=== PATIENT | male | born 1950 | race Caucasian/White ===

== ENCOUNTER 2018-08-18 05:37 | Inpatient (IN) | payer MEDICARE ==
[2018-08-11 11:23] LABS: Basophils # (Auto) 0.1 K/mm3 (0.0-0.1); Basophils % (Auto) 1.1 % (0.0-1.8); Eosinophils # (Auto) 0.1 K/mm3 (0.0-0.4); Eosinophils % (Auto) 2.7 % (0.0-4.3); Hematocrit 46.1 % (35.5-45.6); Hemoglobin 15.5 gm/dl (11.8-15.2); Lymphocytes # (Auto) 2.1 K/mm3 (1.2-5.4); Lymphocytes % (Auto) 39.2 % (13.4-35.0); Mean Corpuscular HGB Conc 34 % (32-34); Mean Corpuscular Volume 89 fl (84-94); Monocytes # (Auto) 0.3 K/mm3 (0.0-0.8); Monocytes % (Auto) 6.1 % (0.0-7.3); Platelet Count 182 K/mm3 (140-440); Red Blood Count 5.21 M/mm3 (3.65-5.03); Red Cell Distribution Width 13.9 % (13.2-15.2)
[2018-08-11 11:31] LABS: INR 0.9 (0.87-1.13)
--- NOTE | 2018-08-11 11:47 | Anesthesia Consultation ---
Addendum entered and electronically signed by JAY MARINO MD 08/18/18 07:54: Physical Exam unchanged Original Note: Anesthesia Consult and Med Hx Date of service: 08/11/18 - Airway Anesthetic Teeth Evaluation: Dentures (upper) ROM Head & Neck: Adequate Mental/Hyoid Distance: Adequate Mallampati Class: Class III Intubation Access Assessment: Possibly Difficult - Pulmonary Exam CTA: Yes - Cardiac Exam Cardiac Exam: RRR - Pre-Operative Health Status ASA Pre-Surgery Classification: ASA2 Proposed Anesthetic Plan: General - Pulmonary Hx Smoking: No Hx Asthma: No Hx Respiratory Symptoms: Yes (recent URI (?flu) 2 weeks ago treated with OTC meds. Resolved.) SOB: No - Cardiovascular System Hx Hypertension: Yes Hx Heart Attack/AMI: No Hx Percutaneous Transluminal Coronary Angioplasty (PTCA): No - Central Nervous System Hx Seizures: No CVA: No - Gastrointestinal Hx Gastroesophageal Reflux Disease: No - Endocrine Hx Renal Disease: No Hx Liver Disease: No Hx Insulin Dependent Diabetes: No Hx Non-Insulin Dependent Diabetes: No Hx Thyroid Disease: No - Other Systems Hx Obesity: No - Additional Comments Anesthesia Medical History Comments: No hx anesthetic complications.
[2018-08-11 11:58] LABS: Alanine Aminotransferase 22 units/L (7-56); Albumin 4.3 g/dL (3.9-5); BUN/Creatinine Ratio 19; Blood Urea Nitrogen 17 mg/dL (9-20); Calcium 9.4 mg/dL (8.4-10.2); Hemolysis Index 18
[~2018-08-18 05:37] MED LIST: LACTATED RINGERS 1,000 ML IV SCH; NACL 0.9% 500 ML 500 ML IV ONE; NEURONTIN PO NR; VERSED IV NR
[2018-08-18] MEDS ORDERED: NACL 0.9% 1000 ML 1,000 ML IV SCH ×2 (06:16→16:00)
[2018-08-18] MEDS ORDERED: NACL BACTERIOSTATIC INFILTRATI ONE (06:30)
[2018-08-18] MEDS ORDERED: VERSED IV PRN (06:52)
[2018-08-18] MEDS ORDERED: DIPRIVAN 10 MG/ML IV ONE (07:21)
[2018-08-18] MEDS ORDERED: XYLOCAINE MPF 2% ONE (07:21)
[2018-08-18] MEDS ORDERED: DILAUDID ONE ×2 (07:21→10:40)
[2018-08-18] MEDS ORDERED: ZEMURON IV ONE ×2 (07:21→09:56)
[2018-08-18] MEDS ORDERED: NEOSPORIN GU IR ONE ×2 (07:23→10:00)
[2018-08-18] MEDS ORDERED: ACD-A 500 ML IV ONE (07:23)
[2018-08-18] MEDS ORDERED: ANCEF/STERILE WATER 2 GM/20 ML IV NR (07:36)
[2018-08-18] MEDS ORDERED: DILAUDID IV PRN (07:55)
[2018-08-18] MEDS ORDERED: ZOFRAN IV PRN ×3 (07:55→15:22)
--- NOTE | 2018-08-18 07:55 | Anesthesia Day of Surgery ---
Anesthesia Day of Surgery - Day of Surgery Patient Examined: Yes Patient H&P Reviewed: Yes Patient is NPO: Yes
[2018-08-18] MEDS ORDERED: LACTATED RINGERS 1,000 ML IV SCH (08:00)
[2018-08-18] MEDS ORDERED: DECADRON ONE (08:38)
[2018-08-18] MEDS ORDERED: ZOFRAN ONE (08:38)
[2018-08-18] MEDS ORDERED: METHYLENE BLUE ONE (09:28)
[2018-08-18] MEDS ORDERED: SUBLIMAZE ONE (09:29)
[2018-08-18] MEDS ORDERED: NACL 0.9% IR ONE (10:00)
[2018-08-18] MEDS ORDERED: WATER FOR IRRIG STERILE IR ONE (10:00)
[2018-08-18] MEDS ORDERED: BLOXIVERZ ONE (10:09)
[2018-08-18] MEDS ORDERED: ROBINUL ONE (10:09)
[2018-08-18] MEDS ORDERED: WATER FOR IRRIG STERILE ONE ×2 (11:06→11:32)
--- NOTE | 2018-08-18 11:17 | Post Anesthesia Evaluation ---
- Post Anesthesia Evaluation Patient Participated: Yes Airway Patent: Yes Stable Respiratory Function: Yes Nausea/Vomiting: No Temp > 96.8F: Yes Pain Manageable: Yes Adequeate Hydration: Yes Anesthesia Complications: No
[2018-08-18] MEDS ORDERED: NACL 0.9% 2,000 ML ONE ×4 (11:20→11:32)
[2018-08-18] MEDS: DILAUDID IV PRN ×5 (11:25→23:03)
[2018-08-18] MEDS ORDERED: LOPRESSOR IV ONE (11:26)
[2018-08-18 11:34] LABS: Basophils % (Auto) 0.1 % (0.0-1.8); Eosinophils % (Auto) 0.3 % (0.0-4.3); Hematocrit 42.6 % (35.5-45.6); Lymphocytes # (Auto) 1.3 K/mm3 (1.2-5.4); Lymphocytes % (Auto) 10.6 % (13.4-35.0); Mean Corpuscular HGB Conc 33 % (32-34); Mean Corpuscular Volume 90 fl (84-94); Monocytes # (Auto) 0.1 K/mm3 (0.0-0.8); Monocytes % (Auto) 1.1 % (0.0-7.3); Platelet Count 139 K/mm3 (140-440); Red Blood Count 4.76 M/mm3 (3.65-5.03); Red Cell Distribution Width 14.1 % (13.2-15.2)
[2018-08-18] MEDS ORDERED: NACL 0.9% 4,000 ML ONE ×5 (11:36→14:26)
[2018-08-18 11:50] LABS: BUN/Creatinine Ratio 20; Blood Urea Nitrogen 16 mg/dL (9-20); Hemolysis Index 22
[2018-08-18] MEDS ORDERED: NACL 0.9% 1000 ML 1,000 ML ONE (11:50)
--- NOTE | 2018-08-18 12:06 | Post Operative Note ---
Date of procedure: 08/18/18 Pre-op diagnosis: urinary retention Post-op diagnosis: same Findings: as above Procedure: open prostatectomy Anesthesia: GETA Surgeon: SONNY CARMONA Estimated blood loss: other (300) Pathology: list (prostate) Specimen disposition: to lab Condition: stable Disposition: PACU
[2018-08-18 13:27] LABS: Hematocrit 39.1 % (35.5-45.6); Hemoglobin 12.7 gm/dl (11.8-15.2)
[2018-08-18] MEDS ORDERED: ZOFRAN ODT PO PRN (14:30)
[2018-08-18] MEDS ORDERED: TYLENOL PO PRN ×2 (14:30→15:22)
[2018-08-18] MEDS ORDERED: NARCAN 0.4 MG/1 ML IV PRN (14:30)
--- NOTE | 2018-08-18 14:34 | Operative Report ---
PREOPERATIVE DIAGNOSES: Very large prostate with significant intravesical extension, urinary retention, severe bladder outlet obstruction. POSTOPERATIVE DIAGNOSES: Very large prostate with significant intravesical extension, urinary retention, severe bladder outlet obstruction. PROCEDURE: Open prostatectomy. SURGEON Xavi Giron MD METAL MOLD DRESSER: Dr. Parham. ANESTHESIA: General. FINDINGS: This is a gentleman with severe difficulty voiding. He did not improve with conservative measures and medication. He has a large intravesical component and he now presents for treatment. DESCRIPTION OF PROCEDURE: The patient was brought to the operating room and placed on the operating table. Following induction of anesthesia, he was placed in the supine position over the break of the table and prepped and draped in usual sterile fashion. A Pfannenstiel incision was made and carried through the skin and superficial fascia to the rectus sheath. The rectus sheath was cleaned and opened and dissected underneath. The rectus muscle was then divided. Bladder was filled and the peritoneal reflection was pushed superiorly. At this point, stay sutures were placed in the bladder. The bladder was opened and the saline was evacuated. The Duron catheter was removed and we had excellent visualization of the prostate with the O'Yon-O'Yao retractor. Excellent plane was developed on each side and the prostate was easily enucleated without any difficulty. Hemostatic foam as well as a packing was placed for approximately 8 minutes and held. Hemostasis was pretty good, but we still placed sutures at 5 and 7 o'clock positions and any bleeder was sutured. Duron catheter #24 was placed with approximately 15 mL in the balloon and the rest of the solution in the balloon was placed after we started closing the bladder. A 28 suprapubic placed as well as a 10-Nepali flat SERGEI. The patient tolerated the procedure well. The bladder was then closed in 2 layers. Hemostasis with the Crandall drip was good. Irrigation was minimally pink. We brought out the suprapubic tube and drain through a separate stab wound. The fascia was closed with looped PDS, superficial fascia with a 2-0 Vicryl, and skin with clips. The patient tolerated the procedure well. Estimated blood loss during the case was 300. He was brought to recovery in stable condition. When we got to the recovery room, urine was little bloody. He was having some spasms so I put him on a little traction which seems to clear. Hemoglobin recovery is 14, we will keep a close eye. If he needs blood, we will give it to him and he seems to be stable. His blood pressure was up to 180 in the recovery room. We gave him pain medication that also helped. JOB# [id number] JILLIAN/DEEPAK
[2018-08-18] MEDS ORDERED: SODIUM CHLORIDE FLUSH SYRINGE 10 ML IV PRN (15:22)
[2018-08-18] MEDS ORDERED: D5W/0.45% NACL/KCL 20 MEQ 20 MEQ/1,000 ML BAG IV SCH (16:00)
[2018-08-18] MEDS: ANCEF/NS 1 GM/50 ML 1 GM/50 ML BAG IV SCH (16:35)
[2018-08-18] MEDS ORDERED: SODIUM CHLORIDE FLUSH SYRINGE 10 ML IV SCH (22:00)
[2018-08-18] MEDS: COLACE PO SCH (22:49)
[2018-08-18] MEDS: AMBIEN PO PRN (23:05)
--- NOTE | 2018-08-19 01:28 | History and Physical Report ---
History of Present Illness Date of examination: 08/18/18 Date of admission: 08/18/18 14:30 Chief complaint: S/p Prostatectomy History of present illness: S/p open prostatectomy for large BPH.Post op doing well.No sob or fever. Past History Past Medical History: hypertension, hyperlipidemia, other (Bph) Past Surgical History: Other (Prostatectomy) Social history: no significant social history, lives with family, full code Family history: hypertension Medications and Allergies Allergies Allergy/AdvReac Type Severity Reaction Status Date / Time No Known Allergies Allergy Verified 08/06/18 14:17 Home Medications Medication Instructions Recorded Confirmed Last Taken Type Tamsulosin [Flomax] 0.4 mg PO QDAY #14 cap 02/15/15 08/06/18 08/17/18 Rx Finasteride [Proscar] 5 mg PO DAILY 08/06/18 08/06/18 08/17/18 History AtorvaSTATin [Lipitor] 20 mg PO QHS 08/13/18 08/13/18 08/17/18 History Lisinopril/Hydrochlorothiazide 1 each PO DAILY 08/13/18 08/13/18 08/17/18 History [Zestoretic 10-12.5 mg Tablet] Active Meds: Active Medications Acetaminophen (Tylenol) 650 mg PO Q4H PRN PRN Reason: Pain, Mild (1-3)/Fever > 100.5 Atorvastatin Calcium (Lipitor) 20 mg PO QHS [facility] Docusate Sodium (Colace) 100 mg PO BID [facility] Last Admin: 08/18/18 22:49 Dose: 100 mg Documented by: Hydromorphone HCl (Dilaudid) 0.5 mg IV Q3H PRN PRN Reason: Pain , Severe (7-10) Last Admin: 08/18/18 23:03 Dose: 0.5 mg Documented by: Lactated Ringer's (Lactated Ringers) 1,000 mls @ 100 mls/hr IV DIRECT HUMBERTO Cefazolin Sodium (Ancef/Ns 1 Gm/50 Ml) 1 gm in 50 mls @ 100 mls/hr IV Q8H [facility]; Protocol Stop: 08/19/18 16:29 Last Admin: 08/18/18 16:35 Dose: 100 mls/hr Documented by: Potassium Chloride/Dextrose/Sod Cl (D5w/0.45% Nacl/Kcl 20 Meq) 20 meq in 1,000 mls @ 125 mls/hr IV DIRECT HUMBERTO Sodium Chloride (Nacl 0.9% 1000 Ml) 1,000 mls @ 75 mls/hr IV DIRECT [facility]UM[facility]ERTO Miscellaneous Medication (Lisinopril/Hydrochlorothiazide [Zestoretic 10-12.5 Mg Tablet]) 1 each PO DAILY [facility] Naloxone HCl (Narcan 0.4 Mg/1 Ml) 0.1 mg IV Q2MIN PRN PRN Reason: Res Rate </= 8 or 02 SAT < 92% Ondansetron HCl (Zofran) 4 mg IV ONCE PRN PRN Reason: Nausea And Vomiting Ondansetron HCl (Zofran Odt) 4 mg PO Q8H PRN PRN Reason: Nausea And Vomiting Ondansetron HCl (Zofran) 4 mg IV Q8H PRN PRN Reason: Nausea And Vomiting Sodium Chloride (Nacl 0.9%) 2,000 ml IR DIRECT [facility]UM[facility]ERTO Sodium Chloride (Sodium Chloride Flush Syringe 10 Ml) 10 ml IV BID [facility] Last Admin: 08/18/18 22:49 Dose: 10 ml Documented by: Sodium Chloride (Sodium Chloride Flush Syringe 10 Ml) 10 ml IV PRN PRN PRN Reason: LINE FLUSH Zolpidem Tartrate (Ambien) 5 mg PO QHS PRN PRN Reason: Sleep Last Admin: 08/18/18 23:05 Dose: 5 mg Documented by: Review of Systems All systems: negative Exam - Constitutional Vitals: Temp Pulse Resp BP Pulse Ox 98.1 F 101 H 16 152/90 97 08/18/18 17:30 08/18/18 17:30 08/18/18 17:30 08/18/18 17:30 08/18/18 17:00 General appearance: Present: no acute distress, well-nourished - EENT Eyes: Present: PERRL ENT: hearing intact, clear oral mucosa - Neck Neck: Present: supple, normal ROM - Respiratory Respiratory effort: normal Respiratory: bilateral: CTA - Cardiovascular Heart rate: 78 Rhythm: regular Heart Sounds: Present: S1 & S2. Absent: rub, click - Extremities Extremities: pulses symmetrical, No edema Peripheral Pulses: within normal limits - Abdominal General gastrointestinal: Present: soft, non-tender, non-distended, normal bowel sounds Male genitourinary: Present: normal - Rectal Rectal Exam: deferred - Integumentary Integumentary: Present: clear, warm, dry - Musculoskeletal Musculoskeletal: gait normal, strength equal bilaterally - Psychiatric Psychiatric: appropriate mood/affect, intact judgment & insight - Neurologic Neurologic: CNII-XII intact, moves all extremities - Allied Health Allied health notes reviewed: nursing, case management Results - Labs CBC & Chem 7: 08/18/18 13:21 08/18/18 11:31 Labs: Laboratory Last Values WBC 12.3 K/mm3 (4.5-11.0) H 08/18/18 11:31 RBC 4.76 M/mm3 (3.65-5.03) 08/18/18 11:31 Hgb 12.7 gm/dl (11.8-15.2) 08/18/18 13:21 Hct 39.1 % (35.5-45.6) 08/18/18 13:21 MCV 90 fl (84-94) 08/18/18 11:31 MCH 30 pg (28-32) 08/18/18 11:31 MCHC 33 % (32-34) 08/18/18 11:31 RDW 14.1 % (13.2-15.2) 08/18/18 11:31 Plt Count 139 K/mm3 (140-440) L 08/18/18 11:31 Lymph % (Auto) 10.6 % (13.4-35.0) L 08/18/18 11:31 [place] % (Auto) 1.1 % (0.0-7.3) 08/18/18 11:31 Eos % (Auto) 0.3 % (0.0-4.3) 08/18/18 11:31 Baso % (Auto) 0.1 % (0.0-1.8) 08/18/18 11:31 Lymph # 1.3 K/mm3 (1.2-5.4) 08/18/18 11:31 [place] # 0.1 K/mm3 (0.0-0.8) 08/18/18 11:31 Eos # 0.0 K/mm3 (0.0-0.4) 08/18/18 11:31 Baso # 0.0 K/mm3 (0.0-0.1) 08/18/18 11:31 Seg Neutrophils % 87.9 % (40.0-70.0) H 08/18/18 11:31 Seg Neutrophils # 10.9 K/mm3 (1.8-7.7) H 08/18/18 11:31 PT 12.6 Sec. (12.2-14.9) 08/11/18 11:00 INR 0.90 (0.87-1.13) 08/11/18 11:00 APTT 26.5 Sec. (24.2-36.6) 08/11/18 11:00 Sodium 138 mmol/L (137-145) 08/18/18 11:31 Potassium 4.0 mmol/L (3.6-5.0) 08/18/18 11:31 Chloride 109.5 mmol/L (98-107) H 08/18/18 11:31 Carbon Dioxide 20 mmol/L (22-30) L 08/18/18 11:31 Anion Gap 13 mmol/L 08/18/18 11:31 BUN 16 mg/dL (9-20) 08/18/18 11:31 Creatinine 0.8 mg/dL (0.8-1.5) 08/18/18 11:31 Estimated GFR > 60 ml/min 08/18/18 11:31 BUN/Creatinine Ratio 20 % 08/18/18 11:31 Glucose 136 mg/dL (75-100) H 08/18/18 11:31 Calcium 8.0 mg/dL (8.4-10.2) L 08/18/18 11:31 Total Bilirubin 0.40 mg/dL (0.1-1.2) 08/11/18 11:00 AST 20 units/L (5-40) 08/11/18 11:00 ALT 22 units/L (7-56) 08/11/18 11:00 Alkaline Phosphatase 63 units/L (35-129) 08/11/18 11:00 Total Protein 7.7 g/dL (6.3-8.2) 08/11/18 11:00 Albumin 4.3 g/dL (3.9-5) 08/11/18 11:00 Albumin/Globulin Ratio 1.3 % 08/11/18 11:00 Blood Type O POSITIVE 08/18/18 06:30 Antibody Screen Negative 08/18/18 06:30 Crossmatch See Detail 08/18/18 06:30 Assessment and Plan Advance Directives: Yes (FC) VTE prophylaxis?: Chemical Plan of care discussed with patient/family: Yes - Patient Problems (1) S/P prostatectomy Current Visit: Yes Status: Acute Plan to address problem: Doing well (2) BPH (benign prostatic hyperplasia) Current Visit: Yes Status: Chronic Qualifiers: Lower urinary tract symptom presence: symptoms present Lower urinary tract symptom detail: urinary retention Qualified Code(s): N40.1 - Benign prostatic hyperplasia with lower urinary tract symptoms; R33.8 - Other retention of urine Plan to address problem: Patient had Prostatectomy May not need Flomax and Proscar Will defer to Urology (3) HTN (hypertension) Current Visit: Yes Status: Chronic Qualifiers: Hypertension type: essential hypertension Qualified Code(s): I10 - Essential (primary) hypertension Plan to address problem: Cont Lisinopril (4) HLD (hyperlipidemia) Current Visit: Yes Status: Chronic Qualifiers: Hyperlipidemia type: mixed hyperlipidemia Qualified Code(s): E78.2 - Mixed hyperlipidemia (5) DVT prophylaxis Current Visit: Yes Status: Acute Plan to address problem: Scd's and GI prophylaxis
[2018-08-19] MEDS ORDERED: ZOFRAN IV PRN (01:34)
[2018-08-19] MEDS ORDERED: SODIUM CHLORIDE FLUSH SYRINGE 10 ML IV PRN (01:34)
[2018-08-19] MEDS ORDERED: TYLENOL PO PRN (01:34)
[2018-08-19 05:03] LABS: Basophils % (Auto) 0.3 % (0.0-1.8); Hematocrit 35.4 % (35.5-45.6); Hemoglobin 11.8 gm/dl (11.8-15.2); Lymphocytes # (Auto) 1.3 K/mm3 (1.2-5.4); Lymphocytes % (Auto) 14.3 % (13.4-35.0); Mean Corpuscular HGB Conc 33 % (32-34); Mean Corpuscular Volume 90 fl (84-94); Monocytes # (Auto) 0.7 K/mm3 (0.0-0.8); Monocytes % (Auto) 8.1 % (0.0-7.3); Platelet Count 161 K/mm3 (140-440); Red Blood Count 3.92 M/mm3 (3.65-5.03); Red Cell Distribution Width 14.1 % (13.2-15.2)
[2018-08-19 05:28] LABS: BUN/Creatinine Ratio 13; Blood Urea Nitrogen 16 mg/dL (9-20); Calcium 7.6 mg/dL (8.4-10.2); Hemolysis Index 0
[2018-08-19] MEDS ORDERED: NON-FORMULARY (Lisinopril/Hydrochlorothiazide [Zestoretic 10-12.5 Mg Tablet] 1 EACH) PO SCH (10:00)
--- NOTE | 2018-08-19 10:45 | Progress Note ---
Assessment and Plan urine clear looks wekk dressing changed oob Subjective Date of service: 08/19/18 Principal diagnosis: retention Objective - Constitutional General appearance: Present: no acute distress - Neck Neck: supple - Respiratory Respiratory effort: normal Extremities: no ischemia - Gastrointestinal General gastrointestinal: Present: soft, non-tender - Labs CBC & Chem 7: 08/19/18 04:28 08/19/18 04:28 Labs: Abnormal lab results 08/18/18 08/18/18 08/18/18 Range/Units 06:30 11:31 11:31 WBC 12.3 H (4.5-11.0) K/mm3 Hct (35.5-45.6) % Plt Count 139 L (140-440) K/mm3 Lymph % (Auto) 10.6 L (13.4-35.0) % [place] % (Auto) (0.0-7.3) % Seg Neutrophils % 87.9 H (40.0-70.0) % Seg Neutrophils # 10.9 H (1.8-7.7) K/mm3 Potassium (3.6-5.0) mmol/L Chloride 109.5 H (98-107) mmol/L Carbon Dioxide 20 L (22-30) mmol/L Glucose 136 H (75-100) mg/dL POC Glucose (70-105) Calcium 8.0 L (8.4-10.2) mg/dL Crossmatch See Detail 08/18/18 08/19/18 08/19/18 Range/Units 23:54 04:28 04:28 WBC (4.5-11.0) K/mm3 Hct 35.4 L (35.5-45.6) % Plt Count (140-440) K/mm3 Lymph % (Auto) (13.4-35.0) % [place] % (Auto) 8.1 H (0.0-7.3) % Seg Neutrophils % 77.3 H (40.0-70.0) % Seg Neutrophils # (1.8-7.7) K/mm3 Potassium 5.6 H D (3.6-5.0) mmol/L Chloride (98-107) mmol/L Carbon Dioxide (22-30) mmol/L Glucose 145 H (75-100) mg/dL POC Glucose 145 H (70-105) Calcium 7.6 L (8.4-10.2) mg/dL Crossmatch Medications & Allergies - Medications Allergies/Adverse Reactions: Allergies No Known Allergies Allergy (Verified 08/06/18 14:17) Home Medications: Home Medications Medication Instructions Recorded Confirmed Last Taken Type Tamsulosin [Flomax] 0.4 mg PO QDAY #14 cap 02/15/15 08/06/18 08/17/18 Rx Finasteride [Proscar] 5 mg PO DAILY 08/06/18 08/06/18 08/17/18 History AtorvaSTATin [Lipitor] 20 mg PO QHS 08/13/18 08/13/18 08/17/18 History Lisinopril/Hydrochlorothiazide 1 each PO DAILY 08/13/18 08/13/18 08/17/18 History [Zestoretic 10-12.5 mg Tablet] Active Medications: Generic Name Dose Route Start Last Admin Trade Name Freq PRN Reason Stop Dose Admin Acetaminophen 650 mg 08/19/18 01:34 Tylenol PO Q4H PRN Pain MILD(1-3)/Fever >100.5/SAMSON Atorvastatin Calcium 20 mg 08/19/18 22:00 Lipitor PO QHS [facility] Docusate Sodium 100 mg 08/18/18 22:00 08/18/18 22:49 Colace PO 100 mg BID [facility] Administration Famotidine 20 mg 08/19/18 10:00 Pepcid PO BID [facility] Hydrochlorothiazide 12.5 mg 08/19/18 10:00 Hctz PO QDAY [facility] Hydromorphone HCl 0.5 mg 08/18/18 14:30 08/18/18 23:03 Dilaudid IV 0.5 mg Q3H PRN Administration Pain , Severe (7-10) Cefazolin Sodium 1 gm in 50 mls @ 100 mls/hr 08/18/18 16:00 08/18/18 16:35 Ancef/Ns 1 Gm/50 Ml IV 08/19/18 16:29 100 mls/hr Q8H [facility] Administration Protocol Dextrose/Sodium Chloride 1,000 mls @ 125 mls/hr 08/19/18 10:36 D5/0.45ns IV DIRECT [facility]UM[facility]ERTO Lisinopril 10 mg 08/19/18 10:00 Zestril PO QDAY [facility] Naloxone HCl 0.1 mg 08/18/18 14:30 Narcan 0.4 Mg/1 Ml IV Q2MIN PRN Res Rate </= 8 or 02 SAT < 92% Ondansetron HCl 4 mg 08/18/18 14:30 Zofran Odt PO Q8H PRN Nausea And Vomiting Ondansetron HCl 4 mg 08/19/18 01:34 Zofran IV Q8H PRN Nausea And Vomiting Sodium Chloride 2,000 ml 08/18/18 15:00 Nacl 0.9% IR DIRECT HUM[facility]ERTO Sodium Chloride 10 ml 08/19/18 10:00 Sodium Chloride Flush Syringe 10 Ml IV BID [facility] Sodium Chloride 10 ml 08/19/18 01:34 Sodium Chloride Flush Syringe 10 Ml IV PRN PRN LINE FLUSH Zolpidem Tartrate 5 mg 08/18/18 14:30 08/18/18 23:05 Ambien PO 5 mg QHS PRN Administration Sleep
[2018-08-19] MEDS: D5/0.45NS 1,000 ML IV SCH ×2 (11:24→21:25)
[2018-08-19] MEDS: ANCEF/NS 1 GM/50 ML 1 GM/50 ML BAG IV SCH ×4 (11:27→23:58)
[2018-08-19] MEDS: PEPCID PO SCH ×2 (11:28→21:25)
[2018-08-19] MEDS: HCTZ PO SCH (11:28)
[2018-08-19] MEDS: COLACE PO SCH ×2 (11:28→21:25)
[2018-08-19] MEDS: ZESTRIL PO SCH (11:28)
[2018-08-19] MEDS: SODIUM CHLORIDE FLUSH SYRINGE 10 ML IV SCH ×2 (11:29→21:25)
[2018-08-19] MEDS: DILAUDID IV PRN ×3 (12:12→21:26)
--- NOTE | 2018-08-19 14:07 | Progress Note ---
Assessment and Plan Assessment and plan: s/p prostatectomy. Continue per urology. Hypertension. Continue lisinopril. Hyperkalemia. Kayexalate 1. Hyperlipidemia. Deconditioning. PT/OT DVT prophylaxis. SCDs History Interval history: S/p open prostatectomy for large BPH.Post op doing well. Hospitalist Physical - Constitutional Vitals: Temp Pulse Resp BP Pulse Ox 98.1 F 86 16 120/69 97 08/18/18 17:30 08/19/18 11:28 08/18/18 17:30 08/19/18 11:28 08/18/18 17:00 General appearance: Present: no acute distress - EENT Eyes: Present: PERRL, EOM intact ENT: hearing intact, clear oral mucosa, dentition normal - Neck Neck: Present: supple, normal ROM - Respiratory Respiratory effort: normal Respiratory: bilateral: CTA - Cardiovascular Rhythm: regular Heart Sounds: Present: S1 & S2. Absent: gallop, rub - Extremities Extremities: no ischemia, No edema, Full ROM - Abdominal General gastrointestinal: soft, non-tender, non-distended, normal bowel sounds - Integumentary Integumentary: Present: clear, warm, dry - Neurologic Neurologic: CNII-XII intact, moves all extremities Results - Labs CBC & Chem 7: 08/19/18 04:28 08/19/18 04:28 Labs: Laboratory Last Values WBC 9.0 K/mm3 (4.5-11.0) 08/19/18 04:28 RBC 3.92 M/mm3 (3.65-5.03) 08/19/18 04:28 Hgb 11.8 gm/dl (11.8-15.2) 08/19/18 04:28 Hct 35.4 % (35.5-45.6) L 08/19/18 04:28 MCV 90 fl (84-94) 08/19/18 04:28 MCH 30 pg (28-32) 08/19/18 04:28 MCHC 33 % (32-34) 08/19/18 04:28 RDW 14.1 % (13.2-15.2) 08/19/18 04:28 Plt Count 161 K/mm3 (140-440) 08/19/18 04:28 Lymph % (Auto) 14.3 % (13.4-35.0) 08/19/18 04:28 [place] % (Auto) 8.1 % (0.0-7.3) H 08/19/18 04:28 Eos % (Auto) 0.0 % (0.0-4.3) 08/19/18 04:28 Baso % (Auto) 0.3 % (0.0-1.8) 08/19/18 04:28 Lymph # 1.3 K/mm3 (1.2-5.4) 08/19/18 04:28 [place] # 0.7 K/mm3 (0.0-0.8) 08/19/18 04:28 Eos # 0.0 K/mm3 (0.0-0.4) 08/19/18 04:28 Baso # 0.0 K/mm3 (0.0-0.1) 08/19/18 04:28 Seg Neutrophils % 77.3 % (40.0-70.0) H 08/19/18 04:28 Seg Neutrophils # 7.0 K/mm3 (1.8-7.7) 08/19/18 04:28 PT 12.6 Sec. (12.2-14.9) 08/11/18 11:00 INR 0.90 (0.87-1.13) 08/11/18 11:00 APTT 26.5 Sec. (24.2-36.6) 08/11/18 11:00 Sodium 139 mmol/L (137-145) 08/19/18 04:28 Potassium 5.6 mmol/L (3.6-5.0) H D 08/19/18 04:28 Chloride 106.8 mmol/L (98-107) 08/19/18 04:28 Carbon Dioxide 24 mmol/L (22-30) 08/19/18 04:28 Anion Gap 14 mmol/L 08/19/18 04:28 BUN 16 mg/dL (9-20) 08/19/18 04:28 Creatinine 1.2 mg/dL (0.8-1.5) 08/19/18 04:28 Estimated GFR > 60 ml/min 08/19/18 04:28 BUN/Creatinine Ratio 13 % 08/19/18 04:28 Glucose 145 mg/dL (75-100) H 08/19/18 04:28 POC Glucose 145 (70-105) H 08/18/18 23:54 Calcium 7.6 mg/dL (8.4-10.2) L 08/19/18 04:28 Total Bilirubin 0.40 mg/dL (0.1-1.2) 08/11/18 11:00 AST 20 units/L (5-40) 08/11/18 11:00 ALT 22 units/L (7-56) 08/11/18 11:00 Alkaline Phosphatase 63 units/L (35-129) 08/11/18 11:00 Total Protein 7.7 g/dL (6.3-8.2) 08/11/18 11:00 Albumin 4.3 g/dL (3.9-5) 08/11/18 11:00 Albumin/Globulin Ratio 1.3 % 08/11/18 11:00 Blood Type O POSITIVE 08/18/18 06:30 Antibody Screen Negative 08/18/18 06:30 Crossmatch See Detail 08/18/18 06:30
[2018-08-19] MEDS: NACL 0.9% IR SCH ×2 (21:20→23:30)
[2018-08-19] MEDS: KIONEX PO ONE (23:56)
[2018-08-20] MEDS: NACL 0.9% IR SCH ×15 (01:11→11:47)
[2018-08-20] MEDS: KIONEX PO ONE (01:32)
[2018-08-20] MEDS: DILAUDID IV PRN ×5 (01:33→20:42)
[2018-08-20] MEDS: AMBIEN PO PRN (01:33)
[2018-08-20] MEDS: D5/0.45NS 1,000 ML IV SCH ×2 (05:39→16:14)
[2018-08-20] MEDS: ANCEF/NS 1 GM/50 ML 1 GM/50 ML BAG IV SCH (09:45)
[2018-08-20] MEDS: ZESTRIL PO SCH (09:45)
[2018-08-20] MEDS: HCTZ PO SCH (09:46)
[2018-08-20] MEDS: PEPCID PO SCH ×2 (09:46→22:13)
[2018-08-20] MEDS: COLACE PO SCH ×2 (09:46→22:12)
[2018-08-20] MEDS: SODIUM CHLORIDE FLUSH SYRINGE 10 ML IV SCH ×2 (09:46→22:14)
--- NOTE | 2018-08-20 11:51 | Progress Note ---
Assessment and Plan Assessment and plan: s/p prostatectomy. Continue per urology. Hypertension. Continue lisinopril. Hyperkalemia. Kayexalate 1. Follow-up repeat BMP. Hyperlipidemia. Deconditioning. Await PT/OT evaluation DVT prophylaxis. SCDs History Interval history: S/p open prostatectomy for large BPH.Post op doing well. Hospitalist Physical - Constitutional Vitals: Temp Pulse Resp BP Pulse Ox 98.1 F 113 H 22 115/58 96 08/18/18 17:30 08/20/18 10:00 08/20/18 01:33 08/20/18 09:45 08/20/18 04:00 General appearance: Present: no acute distress - EENT Eyes: Present: PERRL, EOM intact ENT: hearing intact, clear oral mucosa, dentition normal - Neck Neck: Present: supple, normal ROM - Respiratory Respiratory effort: normal Respiratory: bilateral: CTA - Cardiovascular Rhythm: regular Heart Sounds: Present: S1 & S2. Absent: gallop, rub - Extremities Extremities: no ischemia, No edema, Full ROM - Abdominal General gastrointestinal: soft, non-tender, non-distended, normal bowel sounds - Integumentary Integumentary: Present: clear, warm, dry - Neurologic Neurologic: CNII-XII intact, moves all extremities Results - Labs CBC & Chem 7: 08/19/18 04:28 08/19/18 04:28 Labs: Laboratory Last Values WBC 9.0 K/mm3 (4.5-11.0) 08/19/18 04:28 RBC 3.92 M/mm3 (3.65-5.03) 08/19/18 04:28 Hgb 11.8 gm/dl (11.8-15.2) 08/19/18 04:28 Hct 35.4 % (35.5-45.6) L 08/19/18 04:28 MCV 90 fl (84-94) 08/19/18 04:28 MCH 30 pg (28-32) 08/19/18 04:28 MCHC 33 % (32-34) 08/19/18 04:28 RDW 14.1 % (13.2-15.2) 08/19/18 04:28 Plt Count 161 K/mm3 (140-440) 08/19/18 04:28 Lymph % (Auto) 14.3 % (13.4-35.0) 08/19/18 04:28 [place] % (Auto) 8.1 % (0.0-7.3) H 08/19/18 04:28 Eos % (Auto) 0.0 % (0.0-4.3) 08/19/18 04:28 Baso % (Auto) 0.3 % (0.0-1.8) 08/19/18 04:28 Lymph # 1.3 K/mm3 (1.2-5.4) 08/19/18 04:28 [place] # 0.7 K/mm3 (0.0-0.8) 08/19/18 04:28 Eos # 0.0 K/mm3 (0.0-0.4) 08/19/18 04:28 Baso # 0.0 K/mm3 (0.0-0.1) 08/19/18 04:28 Seg Neutrophils % 77.3 % (40.0-70.0) H 08/19/18 04:28 Seg Neutrophils # 7.0 K/mm3 (1.8-7.7) 08/19/18 04:28 PT 12.6 Sec. (12.2-14.9) 08/11/18 11:00 INR 0.90 (0.87-1.13) 08/11/18 11:00 APTT 26.5 Sec. (24.2-36.6) 08/11/18 11:00 Sodium 139 mmol/L (137-145) 08/19/18 04:28 Potassium 5.6 mmol/L (3.6-5.0) H D 08/19/18 04:28 Chloride 106.8 mmol/L (98-107) 08/19/18 04:28 Carbon Dioxide 24 mmol/L (22-30) 08/19/18 04:28 Anion Gap 14 mmol/L 08/19/18 04:28 BUN 16 mg/dL (9-20) 08/19/18 04:28 Creatinine 1.2 mg/dL (0.8-1.5) 08/19/18 04:28 Estimated GFR > 60 ml/min 08/19/18 04:28 BUN/Creatinine Ratio 13 % 08/19/18 04:28 Glucose 145 mg/dL (75-100) H 08/19/18 04:28 POC Glucose 145 (70-105) H 08/18/18 23:54 Calcium 7.6 mg/dL (8.4-10.2) L 08/19/18 04:28 Total Bilirubin 0.40 mg/dL (0.1-1.2) 08/11/18 11:00 AST 20 units/L (5-40) 08/11/18 11:00 ALT 22 units/L (7-56) 08/11/18 11:00 Alkaline Phosphatase 63 units/L (35-129) 08/11/18 11:00 Total Protein 7.7 g/dL (6.3-8.2) 08/11/18 11:00 Albumin 4.3 g/dL (3.9-5) 08/11/18 11:00 Albumin/Globulin Ratio 1.3 % 08/11/18 11:00 Blood Type O POSITIVE 08/18/18 06:30 Antibody Screen Negative 08/18/18 06:30 Crossmatch See Detail 08/18/18 06:30
--- NOTE | 2018-08-20 13:28 | Progress Note ---
Assessment and Plan doing well urine clear d/c drip to floor in am Subjective Date of service: 08/20/18 Principal diagnosis: retention Objective - Constitutional Vitals: Vital Signs - 12hr 08/20/18 08/20/18 08/20/18 01:33 04:00 08:00 Pulse Rate Pulse Rate [ 112 H 107 H From Monitor] Respiratory 22 Rate Blood Pressure O2 Sat by Pulse 96 98 Oximetry 08/20/18 08/20/18 08/20/18 09:45 10:00 12:00 Pulse Rate 118 H 113 H Pulse Rate [ 108 H From Monitor] Respiratory Rate Blood Pressure 115/58 O2 Sat by Pulse 97 Oximetry General appearance: Present: no acute distress - Neck Neck: supple - Respiratory Respiratory effort: normal Extremities: no ischemia - Gastrointestinal General gastrointestinal: Present: soft, tender - Labs CBC & Chem 7: 08/19/18 04:28 08/19/18 04:28 Medications & Allergies - Medications Allergies/Adverse Reactions: Allergies No Known Allergies Allergy (Verified 08/06/18 14:17) Home Medications: Home Medications Medication Instructions Recorded Confirmed Last Taken Type Tamsulosin [Flomax] 0.4 mg PO QDAY #14 cap 02/15/15 08/06/18 08/17/18 Rx Finasteride [Proscar] 5 mg PO DAILY 08/06/18 08/06/18 08/17/18 History AtorvaSTATin [Lipitor] 20 mg PO QHS 08/13/18 08/13/18 08/17/18 History Lisinopril/Hydrochlorothiazide 1 each PO DAILY 08/13/18 08/13/18 08/17/18 History [Zestoretic 10-12.5 mg Tablet] Active Medications: Generic Name Dose Route Start Last Admin Trade Name Freq PRN Reason Stop Dose Admin Acetaminophen 650 mg 08/19/18 01:34 Tylenol PO Q4H PRN Pain MILD(1-3)/Fever >100.5/SAMSON Atorvastatin Calcium 20 mg 08/19/18 22:00 08/19/18 21:25 Lipitor PO 20 mg QHS HUMBERTO Administration Docusate Sodium 100 mg 08/18/18 22:00 08/20/18 09:46 Colace PO 100 mg BID HUMBERTO Administration Famotidine 20 mg 08/19/18 10:00 08/20/18 09:46 Pepcid PO 20 mg BID HUMBERTO Administration Hydrochlorothiazide 12.5 mg 08/19/18 10:00 08/20/18 09:46 Hctz PO 12.5 mg QDAY HUMBERTO Administration Hydromorphone HCl 0.5 mg 08/18/18 14:30 08/20/18 11:43 Dilaudid IV 0.5 mg Q3H PRN Administration Pain , Severe (7-10) Dextrose/Sodium Chloride 1,000 mls @ 125 mls/hr 08/19/18 10:36 08/20/18 08:00 D5/0.45ns IV 125 mls/hr DIRECT HUMBERTO Infusion Lisinopril 10 mg 08/19/18 10:00 08/20/18 09:45 Zestril PO 10 mg QDAY HUMBERTO Administration Naloxone HCl 0.1 mg 08/18/18 14:30 Narcan 0.4 Mg/1 Ml IV Q2MIN PRN Res Rate </= 8 or 02 SAT < 92% Ondansetron HCl 4 mg 08/18/18 14:30 Zofran Odt PO Q8H PRN Nausea And Vomiting Ondansetron HCl 4 mg 08/19/18 01:34 Zofran IV Q8H PRN Nausea And Vomiting Sodium Chloride 2,000 ml 08/18/18 15:00 08/20/18 11:47 Nacl 0.9% IR 2,000 ml DIRECT HUMBERTO Administration Sodium Chloride 10 ml 08/19/18 10:00 08/20/18 09:46 Sodium Chloride Flush Syringe 10 Ml IV 10 ml BID HUMBERTO Administration Sodium Chloride 10 ml 08/19/18 01:34 Sodium Chloride Flush Syringe 10 Ml IV PRN PRN LINE FLUSH Zolpidem Tartrate 5 mg 08/18/18 14:30 08/20/18 01:33 Ambien PO 5 mg QHS PRN Administration Sleep
[2018-08-20 13:34] LABS: BUN/Creatinine Ratio 8; Blood Urea Nitrogen 7 mg/dL (9-20); Calcium 7.9 mg/dL (8.4-10.2); Hemolysis Index 38
[2018-08-21] MEDS: D5/0.45NS 1,000 ML IV SCH ×2 (00:18→07:56)
--- NOTE | 2018-08-21 10:06 | Progress Note ---
Assessment and Plan urine min peach ambulating home with leg bags Subjective Date of service: 08/21/18 Principal diagnosis: retention Objective - Constitutional Vitals: Vital Signs - 12hr 08/21/18 08/21/18 08/21/18 00:00 04:00 08:00 Pulse Rate [ 96 H 96 H 96 H From Monitor] Respiratory 16 Rate O2 Sat by Pulse 95 95 95 Oximetry General appearance: Present: no acute distress - Neck Neck: supple - Respiratory Respiratory effort: normal Extremities: no ischemia - Gastrointestinal General gastrointestinal: Present: soft, non-tender - Labs CBC & Chem 7: 08/19/18 04:28 08/20/18 12:20 Labs: Abnormal lab results 08/20/18 Range/Units 12:20 Sodium 134 L (137-145) mmol/L Potassium 3.3 L D (3.6-5.0) mmol/L BUN 7 L (9-20) mg/dL Glucose 129 H (75-100) mg/dL Calcium 7.9 L (8.4-10.2) mg/dL Medications & Allergies - Medications Allergies/Adverse Reactions: Allergies No Known Allergies Allergy (Verified 08/06/18 14:17) Home Medications: Home Medications Medication Instructions Recorded Confirmed Last Taken Type Tamsulosin [Flomax] 0.4 mg PO QDAY #14 cap 02/15/15 08/06/18 08/17/18 Rx Finasteride [Proscar] 5 mg PO DAILY 08/06/18 08/06/18 08/17/18 History AtorvaSTATin [Lipitor] 20 mg PO QHS 08/13/18 08/13/18 08/17/18 History Lisinopril/Hydrochlorothiazide 1 each PO DAILY 08/13/18 08/13/18 08/17/18 His tory [Zestoretic 10-12.5 mg Tablet] Active Medications: Generic Name Dose Route Start Last Admin Trade Name Freq PRN Reason Stop Dose Admin Acetaminophen 650 mg 08/19/18 01:34 Tylenol PO Q4H PRN Pain MILD(1-3)/Fever >100.5/SAMSON Atorvastatin Calcium 20 mg 08/19/18 22:00 08/20/18 22:12 Lipitor PO 20 mg QHS HUMBERTO Administration Docusate Sodium 100 mg 08/18/18 22:00 08/20/18 22:12 Colace PO 100 mg BID HUMBERTO Administration Famotidine 20 mg 08/19/18 10:00 08/20/18 22:13 Pepcid PO 20 mg BID HUMBERTO Administration Hydrochlorothiazide 12.5 mg 08/19/18 10:00 08/20/18 09:46 Hctz PO 12.5 mg QDAY HUMBERTO Administration Hydromorphone HCl 0.5 mg 08/18/18 14:30 08/20/18 20:42 Dilaudid IV 0.5 mg Q3H PRN Administration Pain , Severe (7-10) Dextrose/Sodium Chloride 1,000 mls @ 125 mls/hr 08/19/18 10:36 08/21/18 07:56 D5/0.45ns IV 125 mls/hr DIRECT HUMBERTO Administration Lisinopril 10 mg 08/19/18 10:00 08/20/18 09:45 Zestril PO 10 mg QDAY HUMBERTO Administration Naloxone HCl 0.1 mg 08/18/18 14:30 Narcan 0.4 Mg/1 Ml IV Q2MIN PRN Res Rate </= 8 or 02 SAT < 92% Ondansetron HCl 4 mg 08/18/18 14:30 Zofran Odt PO Q8H PRN Nausea And Vomiting Ondansetron HCl 4 mg 08/19/18 01:34 Zofran IV Q8H PRN Nausea And Vomiting Sodium Chloride 2,000 ml 08/18/18 15:00 08/20/18 11:47 Nacl 0.9% IR 2,000 ml DIRECT HUMBERTO Administration Sodium Chloride 10 ml 08/19/18 10:00 08/20/18 22:14 Sodium Chloride Flush Syringe 10 Ml IV 10 ml BID HUMBERTO Administration Sodium Chloride 10 ml 08/19/18 01:34 Sodium Chloride Flush Syringe 10 Ml IV PRN PRN LINE FLUSH Zolpidem Tartrate 5 mg 08/18/18 14:30 08/20/18 01:33 Ambien PO 5 mg QHS PRN Administration Sleep
--- NOTE | 2018-08-21 10:09 | Discharge Summary ---
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 Provider: SONNY CARMONA Physician Instructions: Reason For Exam: htn 08/19/18 14:05 Physical Therapy Evaluation and Treat [CONS] Routine Comment: Reason For Exam: deconditioning Primary care physician: KALA HAMPTON Hospitalization Condition: Good Pertinent studies: post op Procedures: open prostatectomy Hospital course: to or nehemiah surgery well Disposition: DC-01 TO HOME OR SELFCARE Core Measure Documentation - Palliative Care Palliative Care/ Comfort Measures: Not Applicable - Core Measures Any of the following diagnoses?: none - VTE Discharge Requirements Contraindication No Overlap Therapy order at DC: Not Indicated Exam - Constitutional Vitals: Temp Pulse Resp BP Pulse Ox 98.1 F 96 H 16 115/58 95 08/18/18 17:30 08/21/18 08:00 08/21/18 08:00 08/20/18 09:45 08/21/18 08:00 General appearance: Present: no acute distress - Neck Neck: Present: supple - Respiratory Respiratory effort: normal - Extremities Extremities: no ischemia - Abdominal General gastrointestinal: Present: soft, non-tender Plan Activity: other (no straining ) Diet: regular Wound: open to air Special Instructions: other (do not let tubes pull ) Durable Medical Equipment Needed Upon Discharge: other (spt and ruiz ) Follow up with: KALA HAMPTON MD [Primary Care Provider] - 7 Days SONNY CARMONA MD [Staff Physician] - 08/25/18
[2018-08-21] MEDS: ZESTRIL PO SCH (10:22)
[2018-08-21] MEDS: PEPCID PO SCH (10:24)
[2018-08-21] MEDS: COLACE PO SCH (10:25)
[2018-08-21 10:26] VITALS: BP 116/74
[2018-08-21] MEDS: SODIUM CHLORIDE FLUSH SYRINGE 10 ML IV SCH (10:26)
--- NOTE | 2018-08-21 13:26 | Progress Note ---
Assessment and Plan Assessment and plan: s/p prostatectomy. Continue per urology. Hypertension. Continue lisinopril. Hyperkalemia. Kayexalate 1. Follow-up repeat BMP. Hyperlipidemia. Deconditioning. Await PT/OT evaluation DVT prophylaxis. SCDs History Interval history: S/p open prostatectomy for large BPH.Post op doing well. Hospitalist Physical - Constitutional Vitals: Temp Pulse Resp BP Pulse Ox 98.1 F 106 H 16 116/74 95 08/18/18 17:30 08/21/18 10:22 08/21/18 08:00 08/21/18 10:22 08/21/18 08:00 General appearance: Present: no acute distress - EENT Eyes: Present: PERRL, EOM intact ENT: hearing intact, clear oral mucosa, dentition normal - Neck Neck: Present: supple, normal ROM - Respiratory Respiratory effort: normal Respiratory: bilateral: CTA - Cardiovascular Rhythm: regular Heart Sounds: Present: S1 & S2. Absent: gallop, rub - Extremities Extremities: no ischemia, No edema, Full ROM - Abdominal General gastrointestinal: soft, non-tender, non-distended, normal bowel sounds - Integumentary Integumentary: Present: clear, warm, dry - Neurologic Neurologic: CNII-XII intact, moves all extremities Results - Labs CBC & Chem 7: 08/19/18 04:28 08/20/18 12:20 Labs: Laboratory Last Values WBC 9.0 K/mm3 (4.5-11.0) 08/19/18 04:28 RBC 3.92 M/mm3 (3.65-5.03) 08/19/18 04:28 Hgb 11.8 gm/dl (11.8-15.2) 08/19/18 04:28 Hct 35.4 % (35.5-45.6) L 08/19/18 04:28 MCV 90 fl (84-94) 08/19/18 04:28 MCH 30 pg (28-32) 08/19/18 04:28 MCHC 33 % (32-34) 08/19/18 04:28 RDW 14.1 % (13.2-15.2) 08/19/18 04:28 Plt Count 161 K/mm3 (140-440) 08/19/18 04:28 Lymph % (Auto) 14.3 % (13.4-35.0) 08/19/18 04:28 [place]lin % (Auto) 8.1 % (0.0-7.3) H 08/19/18 04:28 Eos % (Auto) 0.0 % (0.0-4.3) 08/19/18 04:28 Baso % (Auto) 0.3 % (0.0-1.8) 08/19/18 04:28 Lymph # 1.3 K/mm3 (1.2-5.4) 08/19/18 04:28 [place]lin # 0.7 K/mm3 (0.0-0.8) 08/19/18 04:28 Eos # 0.0 K/mm3 (0.0-0.4) 08/19/18 04:28 Baso # 0.0 K/mm3 (0.0-0.1) 08/19/18 04:28 Seg Neutrophils % 77.3 % (40.0-70.0) H 08/19/18 04:28 Seg Neutrophils # 7.0 K/mm3 (1.8-7.7) 08/19/18 04:28 PT 12.6 Sec. (12.2-14.9) 08/11/18 11:00 INR 0.90 (0.87-1.13) 08/11/18 11:00 APTT 26.5 Sec. (24.2-36.6) 08/11/18 11:00 Sodium 134 mmol/L (137-145) L 08/20/18 12:20 Potassium 3.3 mmol/L (3.6-5.0) L D 08/20/18 12:20 Chloride 100.7 mmol/L (98-107) 08/20/18 12:20 Carbon Dioxide 23 mmol/L (22-30) 08/20/18 12:20 Anion Gap 14 mmol/L 08/20/18 12:20 BUN 7 mg/dL (9-20) L 08/20/18 12:20 Creatinine 0.9 mg/dL (0.8-1.5) 08/20/18 12:20 Estimated GFR > 60 ml/min 08/20/18 12:20 BUN/Creatinine Ratio 8 % 08/20/18 12:20 Glucose 129 mg/dL (75-100) H 08/20/18 12:20 POC Glucose 145 (70-105) H 08/18/18 23:54 Calcium 7.9 mg/dL (8.4-10.2) L 08/20/18 12:20 Total Bilirubin 0.40 mg/dL (0.1-1.2) 08/11/18 11:00 AST 20 units/L (5-40) 08/11/18 11:00 ALT 22 units/L (7-56) 08/11/18 11:00 Alkaline Phosphatase 63 units/L (35-129) 08/11/18 11:00 Total Protein 7.7 g/dL (6.3-8.2) 08/11/18 11:00 Albumin 4.3 g/dL (3.9-5) 08/11/18 11:00 Albumin/Globulin Ratio 1.3 % 08/11/18 11:00 Blood Type O POSITIVE 08/18/18 06:30 Antibody Screen Negative 08/18/18 06:30 Crossmatch See Detail 08/18/18 06:30
== END 2018-08-21 11:10 | disposition home or self-care (01) | DRG 707 ==
LOC: OR 05:37 → IMCU 14:30
PROVIDERS: ADMIT Urology; ATTEND Hospitalist
PROC: 0VT00ZZ Resection of Prostate, Open Approach (ICD-10-PCS; principal; 2018-08-18)
DX: N40.1 Benign prostatic hyperplasia with lower urinary tract symptoms (principal); N13.8 Other obstructive and reflux uropathy; R94.31 Abnormal electrocardiogram [ECG] [EKG]; I10 Essential (primary) hypertension; Z82.49 Family history of ischemic heart disease and other diseases of the circulatory system; R33.8 Other retention of urine; E78.2 Mixed hyperlipidemia; E87.5 Hyperkalemia
CPT/HCPCS: 36415; 80048; 80053; 82962; 85014; 85018; 85025; 85610; 85730; 86850; 86900; 86901; 86920; 88309; 88342; 88344; G0378; A4217; A9270-GY; J0690; J1100; J1170; J2250; J2405; J2704; J2710; J3010; J7030; J7120; Q9968